=== PATIENT | female | born 2000 | race Caucasian/White ===

== ENCOUNTER 2020-01-22 06:55 | Emergency (ER) | payer OTHER, SELFPAY ==
[2020-01-22 07:13] VITALS: BP 126/65; PULSE 107; RESP 16; TEMP 36.8; O2SAT 99; BMI 22.4
--- NOTE | 2020-01-22 08:40 | XR_ITS ---
EXAMINATION: LEFT KNEE. AP PELVIS AND LEFT HIP. CLINICAL INFORMATION: Atraumatic left hip pain radiating to left knee x1 week COMPARISON: None TECHNIQUE: 2 views left knee. AP pelvis and left hip 3 views. FINDINGS: Left knee: There is no visible acute fracture, dislocation or subluxation seen. No bony erosive changes. No abnormal joint effusion. AP pelvis and left hip: There is normal symmetry of both hip joints and SI joints without bony erosive changes. No visible lytic or sclerotic process involving the pelvis or the SI joints. The soft tissues are normal. AP and frog-leg views left hip reveal no visible acute fracture, dislocation or bony erosive changes. There are small bone islands along the left superior pubic rami. XR/XR knee LT 2V IMPRESSION: Unremarkable left knee exam. Unremarkable AP pelvis and left hip exam.
--- NOTE | 2020-01-22 08:40 | XR_ITS ---
EXAMINATION: LEFT KNEE. AP PELVIS AND LEFT HIP. CLINICAL INFORMATION: Atraumatic left hip pain radiating to left knee x1 week COMPARISON: None TECHNIQUE: 2 views left knee. AP pelvis and left hip 3 views. FINDINGS: Left knee: There is no visible acute fracture, dislocation or subluxation seen. No bony erosive changes. No abnormal joint effusion. AP pelvis and left hip: There is normal symmetry of both hip joints and SI joints without bony erosive changes. No visible lytic or sclerotic process involving the pelvis or the SI joints. The soft tissues are normal. AP and frog-leg views left hip reveal no visible acute fracture, dislocation or bony erosive changes. There are small bone islands along the left superior pubic rami. XR/XR hip LT w PEL1V IMPRESSION: Unremarkable left knee exam. Unremarkable AP pelvis and left hip exam.
--- NOTE | 2020-01-22 08:40 | US_ITS ---
EXAMINATION: US VENOUS ULTRASOUND WITH DOPPLER LOWER EXTREMITY, LEFT CLINICAL INFORMATION: Pain. COMPARISON: None TECHNIQUE: Ultrasound of the deep veins is performed from the hip to the calf with compression sonography and color and pulse Doppler assessment. Spectral analysis with color-flow imaging is performed. FINDINGS: There is normal venous compression and respiratory variation and augmented flow. The visualized common femoral vein, superficial femoral vein, profunda femoral vein, popliteal vein, and the trifurcation region shows no evidence of deep venous thrombosis. There is no significant popliteal fossa cyst. If the patient's symptoms persist, followup ultrasound in 5 days 7 days might be of value to exclude proximal propagation from a non-visualized calf vein. US/US venous duplex LE IMPRESSION: No evidence of DVT left lower leg.
[2020-01-22] MEDS: NaPROXEN 500 MG TABLET PO (08:48)
[2020-01-22 09:10] VITALS: BP 112/65; PULSE 80; RESP 16; TEMP 37.2; O2SAT 100
--- NOTE | 2020-01-22 09:24 | PC.NURSE ---
pt ambulating to and from xray w steady gait
--- NOTE | 2020-01-22 10:31 | ED.LOWEXIN ---
HPI - Extremity Injury (Lower) General Chief Complaint: Extremity Injury, Lower Stated Complaint: LEFT LEG PAIN Time Seen by Provider: 01/22/20 08:36 Source: patient Mode of arrival: ambulatory Limitations: no limitations History of Present Illness HPI Narrative: 19-year-old female presenting to the ED with complaints of left inner thigh pain radiating to her left knee for the past week worse today. Reports she has a history of surgical repair to left ankle 3 years ago. Reports she is status post 10 months . Denies any injuries. Denies any additional complaints or concerns at this time. Related Data Previous Rx's Medication Instructions Recorded cyclobenzaprine 10 mg PO TID PRN #10 tab 01/22/20 naproxen 500 mg PO BID PRN #10 tab 01/22/20 Allergies Allergy/AdvReac Type Severity Reaction Status Date / Time No Known Allergies Allergy Unverified 11/14/19 17:34 [No Known Allergies*] Review of Systems Review of Systems: Constitutional :No Fever, No Chills Cardiovascular : No Chest Pain, No SOB, No Dyspnea on Exertion, No Edema Respiratory : No Cough, No Sputum, No Wheezing, No Smoke Exposure, No Dyspnea Musculoskeletal : + joint pain, No Myalgias, No Joint Swelling Skin : No Skin Lesions, No rash Neuro : No Weakness, No Numbness, No Paresthesias, No Loss of Consciousness, No Dizziness, No Headache Psych : No Anxiety/Panic, No Depression, No SI/HI/AH/VH, No Social Issues, Heme/Lymph: No Bruising, No Bleeding,No Lymphadenopathy Endocrine : No Polyuria, No Polydipsia, No Temperature Intolerance Yes all other systems are reviewed and are negative [facility] Past Medical History Attestation statement: The following information was validated with the patient. Medical History No known health problems Social History Social History Alcohol intake: never Smoking Status: Former smoker Smoked in Last 30 Days: No Use of substances other than those prescribed or required for medical reasons: Yes Substance Use Type: Marijuana Substance Use Frequency: Occasionally Advance Directives: No Advance Directives Information Provided: Yes Physical Exam Vital Signs: Vital Signs: Last Vital Signs Temp 99.0 F 01/22/20 09:10 Pulse 80 01/22/20 09:10 Resp 16 01/22/20 09:10 BP 112/65 01/22/20 09:10 Pulse Ox 100 01/22/20 09:10 Body Mass Index 22.4 vital signs have been reviewed as normal and appeared to be correct. Blood pressure normal. Heart rate normal. Respiration rate normal. Temperature normal. Oxygen saturation normal. Appearance: Alert. Oriented X3. No acute distress. Head: Normal external exam. Normocephalic. Eyes: PERRLA. EOMI. Conjunctiva and sclera normal. Eyelids normal. ENT: Pharynx normal. Uvula midline. Moist mucous membranes. Neck: Normal inspection. Neck supple. FROM. No adenopathy. Thyroid Normal. No meningeal signs. No neck mass noted. CVS: Normal heart rate and rhythm. Heart sound normal. No murmurs noted. Pulses normal throughout. Respiratory: No respiratory distress. Painless inspiration. Breath sounds normal. No wheezes/rales/rhonchi noted. Chest nontender. No accessory muscle usage noted or decreased air movement noted. Back: Full range of motion noted. Skin: Skin warm and dry. Normal skin color. Normal skin turgor. No rashes/lesions/lacerations noted. Extremities: TTP of left inner thight and left knee. No obvious deformities noted. No lower extremity edema. all other Extremities exhibit normal range of motion and nontender. Neuro: Oriented X 3. No motor deficit. No sensory deficit. Reflexes normal. Course Course Course Narrative: - 19-year-old female presenting to the ED with complaints of left inner thigh pain radiating to her left knee for the past week worse today. Reports surgical history of left ankle. Ten months status post . Denies history of DVT/PE. - On exam patient does not have any pitting edema or edema noted to left lower extremity. - X-rays obtained and negative for any acute processes of the left hip /left knee. Ultrasound of left leg obtained and negative for any DVT or any other acute processes. Patient most likely muscular strain. Patient being discharged with naproxen and muscle relaxers instructions return if any new or worsening symptoms to follow-up with primary care provider. Patient understood and agreed with this plan. MDM - Extremity Injury (Lower) Medical Records Attestation: I reviewed the patient's medical records. Imaging Data left hip/knee: Attestation: I personally reviewed and interpreted this imaging study as follows: Radiologist's impression: IMPRESSION: Unremarkable left knee exam. Unremarkable AP pelvis and left hip exam. left leg ultrasiund : Attestation: I personally reviewed and interpreted this imaging study as follows: Radiologist's impression: IMPRESSION: No evidence of DVT left lower leg. Discharge Plan Discharge Clinical Impression: Muscle strain of left lower extremity Patient Disposition: Home, Self-Care Instructions: Muscle Strain (ED) Prescriptions: New cyclobenzaprine 10 mg tablet 10 mg PO TID PRN (Reason: muscle spasm) Qty: 10 RF: 0 naproxen 500 mg tablet 500 mg PO BID PRN (Reason: pain) Qty: 10 RF: 0 Referrals: Physician,None [Primary Care Provider] - 2 days (your pcp) Stand Alone Forms: Work/School Release Discharge Date/Time: 01/22/20 10:36 Print Language: Serbian
== END 2020-01-22 10:36 | disposition home or self-care (01) ==
PROVIDERS: Emergency Provider Internal Medicine
DX: M79.605 Pain in left leg (principal); M25.562 Pain in left knee; M25.552 Pain in left hip; F12.90 Cannabis use, unspecified, uncomplicated; Z87.891 Personal history of nicotine dependence; Z79.899 Other long term (current) drug therapy
CPT/HCPCS: 73502; 73560; 93971; 99284

== ENCOUNTER 2020-06-09 09:23 | Emergency (ER) | payer OTHER, SELFPAY ==
--- NOTE | ~2020-06-09 | US_ITS ---
EXAMINATION: US OBSTETRICAL ULTRASOUND CLINICAL INFORMATION: Positive test. Pain. Rule out ectopic . COMPARISON: None. LMP: Not known. TECHNIQUE: Transabdominal first trimester OB ultrasound FINDINGS: There is a single intrauterine gestational sac with visible yolk sac, embryo/fetus, and cardiac activity. There is a small hypoechoic collection adjacent to the gestational sac questionable for subchorionic hemorrhage. This measures 2.8 x 0.9 x 0.8 cm in dimension. HR: 117 beats per minute. CRL (crown rump length): 0.6 cm (6 weeks 4 days +/- 4 days). LANDRY (estimated date of delivery): 01/29/2021 +/- 4 days. MATERNAL ADNEXA: The right maternal ovary measures 3.1 x 2.1 x 1.5 cm. The left maternal ovary measures 4.6 x 2.7 x 2.3 cm. There is no significant maternal adnexal mass. No maternal pelvic ascites. US/US OB <= 14 weeks fetus IMPRESSION: 1. Single intrauterine gestation with ultrasound gestational age of 6 weeks 4 days +/- 4 days. 2. Estimated date of delivery is 01/29/2021 +/- 4 days. 3. No maternal adnexal mass or pelvic ascites.
[2020-06-09 09:43] VITALS: BP 121/72; PULSE 77; RESP 18; TEMP 36.6; O2SAT 100; BMI 22.4
[2020-06-09 10:04] LABS: Glucose Urine UA NEG (NEG); Leukocyte Esterase Urine TRACE (NEG); Nitrite Urine NEG (NEG); PH 5.5 (5.0-8.0); Specific Gravity - Urine >= 1.030 (1.005-1.025); UACC Culture Trigger YES; Urine Blood 1+ (NEG); Urine Ketones 15 MG/DL (NEG); Urine Protein TRACE MG/DL (NEG-TRACE)
[2020-06-09 10:05] LABS: Appearance Urine HAZY; Color Urine YELLOW; UPreg QC Valid YES; Urine Pregnancy POSITIVE (NEGATIVE)
[2020-06-09 10:12] LABS: Bacteria Urine 3+ /LPF; Mucus Urine 2+ /LPF; Squamous Epithelial Cell Urine 4+ /LPF
--- NOTE | 2020-06-09 10:25 | ED.GENADULT ---
HPI - General Adult General Chief complaint: General Medical <ИРИНА Ley Last Filed: 06/13/20 09:23> Stated complaint: vomiting <ИРИНА Ley Last Filed: 06/13/20 09:23> Time Seen by Provider: 06/09/20 09:42 <ИРИНА Ley - Last Filed: 06/13/20 09:23> History of Present Illness HPI narrative: Patient has felt nauseous the past several days similar to prior pregnancies, her last menstrual was 6 or 7 weeks ago, she took a home test and it was positive but she wants the confirming test. She also was concerned as she has had intermittent low pelvic crampy pains coming and going, she has no pain now, no bleeding no dysuria <ИРИНА Ley Last Filed: 06/13/20 09:23> Related Data Home medications: Previous Rx's Medication Instructions Recorded cyclobenzaprine 10 mg PO TID PRN #10 tab 01/22/20 naproxen 500 mg PO BID PRN #10 tab 01/22/20 ondansetron HCl [Zofran] 4 mg PO Q6H PRN #10 tab 06/09/20 <ИРИНА Ley Last Filed: 06/13/20 09:23> Allergies/adverse reactions: Allergies Allergy/AdvReac Type Severity Reaction Status Date / Time No Known Allergies Allergy Verified 06/10/20 08:41 [No Known Allergies*] <ИРИНА Ley Last Filed: 06/13/20 09:23> Review of Systems Review of Systems: Positive for nausea vomiting and crampy low abdominal pain Negatives are no fever no chills no dizziness no weakness no fainting no feeling faint no confusion no headache no neck pain no chest pain or shortness of breath no dysuria no frequency of urination no burning with urination no diarrhea no rash no numbness or weakness <ИРИНА Ley Last Filed: 06/13/20 09:23> [facility] Past Medical History Medical History: Medical History No known health problems <ИРИНА Ley Last Filed: 06/13/20 09:23> Surgical History: Surgical History History of ankle surgery <ИРИНА Ley - Last Filed: 06/13/20 09:23> Social History Social History: Social History (Updated 06/10/20 @ 08:43 by Herminia Ralph [facility]) Alcohol intake: never Smoking Status: Former smoker Substance Use Type: Marijuana Sexually active: Yes Gender identity: female <ИРИНА Ley - Last Filed: 06/13/20 09:23> Physical Exam Vital Signs: Vital Signs: Last Vital Signs Temp 97.8 F 06/09/20 09:43 Pulse 77 06/09/20 09:43 Resp 18 06/09/20 09:43 BP 121/72 06/09/20 09:43 Pulse Ox 100 06/09/20 09:43 Body Mass Index 22.4 <ИРИНА Ley - Last Filed: 06/13/20 09:23> Vital Signs: Last Vital Signs Temp 97.8 F 06/09/20 09:43 Pulse 77 06/09/20 09:43 Resp 18 06/09/20 09:43 BP 121/72 06/09/20 09:43 Pulse Ox 100 06/09/20 09:43 Body Mass Index 22.4 <Leopoldo Villagomez MD - Last Filed: 06/23/20 15:35> General appearance is no acute distress, comfortable and cooperative The eyes are anicteric no pallor The pharynx is clear with moist mucous membranes The neck is supple The chest is clear The abdomen is soft and nontender The extremities no edema no rash full range of motion x4 Neuro no focal deficits <ИРИНА Ley - Last Filed: 06/13/20 09:23> Course Course Course Narrative: Patient was given antiemetic and tolerates p.o. and is able to drink and tolerate fluids was confirmed with testing Ultrasound confirmed IUP with gestational age of 6 weeks, no ectopic no other mass [place] was [address]174, no other significant lab abnormality, no evidence UTI Well-appearing patient now tolerating p.o. easily is discharged and she already has care scheduled and will follow with OBGYN this week <ИРИНА Ley - Last Filed: 06/13/20 09:23> I have reviewed the chart <Leopoldo Villagomez MD - Last Filed: 06/23/20 15:35> Medical Decision Making Lab Data Result diagrams: : 06/09/20 11:21 06/09/20 11:21 <ИРИНА Ley - Last Filed: 06/13/20 09:23> Labs: Lab Results 06/09/20 06/09/20 06/09/20 Range/Units 09:55 09:55 11:20 WBC (4.8-10.8) X10*3/uL RBC (4.20-5.50) X10*6/uL Hgb (12.0-16.0) g/dl Hct (37-47) % MCV (80-98) fL MCH (27.0-33.0) pg MCHC (31.0-35.0) g/dl RDW (11.0-16.0) % Plt Count (160-400) X10*3/uL MPV (9.4-12.3) fL Immature Gran % (Auto) (0.0-0.4) % Neut % (Auto) (45-73) % Lymph % (Auto) (20-40) % Sumner % (Auto) (2-11) % Eos % (Auto) (0-4) % Baso % (Auto) (0-2) % Lymph # (Auto) (1.2-4.9) X10*3/uL Sumner # (Auto) (0.1-1.2) X10*3/uL Eos # (Auto) (0.0-0.4) X10*3/uL Baso # (Auto) (0.0-0.2) X10*3/uL Abs Immat Gran (auto) (0.00-0.03) X10*3/uL Absolute Neuts (auto) (2.0-8.3) X10*3/uL Absolute Nucleated RBC (0.0-0.012) X10*3/uL Nucleated RBC % (auto) (0.0-0.2) /100WBC Sodium (135-145) mmol/L Potassium (3.3-5.1) mmol/L Chloride (96-108) mmol/L Carbon Dioxide (22-29) mmol/L Anion Gap (12-20) BUN (9-16) mg/dL Creatinine (0.5-1.4) mg/dL Estim Creat Clear Calc Estimated GFR Random Glucose (60-115) mg/dL Calcium (8.4-10.2) mg/dL Beta HCG, Quant mIU/mL Urine Color YELLOW YELLOW Urine Appearance HAZY HAZY Urine pH 5.5 6.0 (5.0-8.0) Ur Specific Bellona >= 1.030 H >= 1.030 H (1.005-1.025) Urine Protein TRACE TRACE (NEG-TRACE) MG/DL Urine Glucose (UA) NEG NEG (NEG) MG/DL Urine Ketones 15 40 (NEG) MG/DL Urine Blood 1+ H TRACE (NEG) Urine Nitrite NEG NEG (NEG) Ur Leukocyte Esterase TRACE H NEG (NEG) Urine RBC 1-4 1-4 (0) /HPF Urine WBC 5-9 H 0-2 (0-4) /HPF Ur Squamous Epith Cells 4+ 2+ /LPF Urine Bacteria 3+ TRACE /LPF Urine Mucus 2+ 4+ /LPF Urine Test POSITIVE H (NEGATIVE) 06/09/20 06/09/20 06/09/20 Range/Units 11:21 11:21 11:21 WBC 8.3 (4.8-10.8) X10*3/uL RBC 3.97 L (4.20-5.50) X10*6/uL Hgb 11.9 L (12.0-16.0) g/dl Hct 35.5 L (37-47) % MCV 89.4 (80-98) fL MCH 30.0 (27.0-33.0) pg MCHC 33.5 (31.0-35.0) g/dl RDW 12.4 (11.0-16.0) % Plt Count 212 (160-400) X10*3/uL MPV 10.7 (9.4-12.3) fL Immature Gran % (Auto) 0.2 (0.0-0.4) % Neut % (Auto) 70.1 (45-73) % Lymph % (Auto) 23.4 (20-40) % Sumner % (Auto) 5.9 (2-11) % Eos % (Auto) 0.2 (0-4) % Baso % (Auto) 0.2 (0-2) % Lymph # (Auto) 2.0 (1.2-4.9) X10*3/uL Sumner # (Auto) 0.5 (0.1-1.2) X10*3/uL Eos # (Auto) 0.0 (0.0-0.4) X10*3/uL Baso # (Auto) 0.0 (0.0-0.2) X10*3/uL Abs Immat Gran (auto) 0.02 (0.00-0.03) X10*3/uL Absolute Neuts (auto) 5.8 (2.0-8.3) X10*3/uL Absolute Nucleated RBC 0.000 (0.0-0.012) X10*3/uL Nucleated RBC % (auto) 0.0 (0.0-0.2) /100WBC Sodium 138 (135-145) mmol/L Potassium 3.8 (3.3-5.1) mmol/L Chloride 108 (96-108) mmol/L Carbon Dioxide 19 L (22-29) mmol/L Anion Gap 15 (12-20) BUN 9 (9-16) mg/dL Creatinine 0.64 (0.5-1.4) mg/dL Estim Creat Clear Calc 124.0 Estimated GFR > 60 Random Glucose 94 (60-115) mg/dL Calcium 9.7 (8.4-10.2) mg/dL Beta HCG, Quant 45641 mIU/mL Urine Color Urine Appearance Urine pH (5.0-8.0) Ur Specific Bellona (1.005-1.025) Urine Protein (NEG-TRACE) MG/DL Urine Glucose (UA) (NEG) MG/DL Urine Ketones (NEG) MG/DL Urine Blood (NEG) Urine Nitrite (NEG) Ur Leukocyte Esterase (NEG) Urine RBC (0) /HPF Urine WBC (0-4) /HPF Ur Squamous Epith Cells /LPF Urine Bacteria /LPF Urine Mucus /LPF Urine Test (NEGATIVE) <ИРИНА Ley - Last Filed: 06/13/20 09:23> Lab Results 06/09/20 06/09/20 06/09/20 Range/Units 09:55 09:55 11:20 WBC (4.8-10.8) X10*3/uL RBC (4.20-5.50) X10*6/uL Hgb (12.0-16.0) g/dl Hct (37-47) % MCV (80-98) fL MCH (27.0-33.0) pg MCHC (31.0-35.0) g/dl RDW (11.0-16.0) % Plt Count (160-400) X10*3/uL MPV (9.4-12.3) fL Immature Gran % (Auto) (0.0-0.4) % Neut % (Auto) (45-73) % Lymph % (Auto) (20-40) % Sumner % (Auto) (2-11) % Eos % (Auto) (0-4) % Baso % (Auto) (0-2) % Lymph # (Auto) (1.2-4.9) X10*3/uL Sumner # (Auto) (0.1-1.2) X10*3/uL Eos # (Auto) (0.0-0.4) X10*3/uL Baso # (Auto) (0.0-0.2) X10*3/uL Abs Immat Gran (auto) (0.00-0.03) X10*3/uL Absolute Neuts (auto) (2.0-8.3) X10*3/uL Absolute Nucleated RBC (0.0-0.012) X10*3/uL Nucleated RBC % (auto) (0.0-0.2) /100WBC Sodium (135-145) mmol/L Potassium (3.3-5.1) mmol/L Chloride (96-108) mmol/L Carbon Dioxide (22-29) mmol/L Anion Gap (12-20) BUN (9-16) mg/dL Creatinine (0.5-1.4) mg/dL Estim Creat Clear Calc Estimated GFR Random Glucose (60-115) mg/dL Calcium (8.4-10.2) mg/dL Beta HCG, Quant mIU/mL Urine Color YELLOW YELLOW Urine Appearance HAZY HAZY Urine pH 5.5 6.0 (5.0-8.0) Ur Specific Bellona >= 1.030 H >= 1.030 H (1.005-1.025) Urine Protein TRACE TRACE (NEG-TRACE) MG/DL Urine Glucose (UA) NEG NEG (NEG) MG/DL Urine Ketones 15 40 (NEG) MG/DL Urine Blood 1+ H TRACE (NEG) Urine Nitrite NEG NEG (NEG) Ur Leukocyte Esterase TRACE H NEG (NEG) Urine RBC 1-4 1-4 (0) /HPF Urine WBC 5-9 H 0-2 (0-4) /HPF Ur Squamous Epith Cells 4+ 2+ /LPF Urine Bacteria 3+ TRACE /LPF Urine Mucus 2+ 4+ /LPF Urine Test POSITIVE H (NEGATIVE) 06/09/20 06/09/20 06/09/20 Range/Units 11:21 11:21 11:21 WBC 8.3 (4.8-10.8) X10*3/uL RBC 3.97 L (4.20-5.50) X10*6/uL Hgb 11.9 L (12.0-16.0) g/dl Hct 35.5 L (37-47) % MCV 89.4 (80-98) fL MCH 30.0 (27.0-33.0) pg MCHC 33.5 (31.0-35.0) g/dl RDW 12.4 (11.0-16.0) % Plt Count 212 (160-400) X10*3/uL MPV 10.7 (9.4-12.3) fL Immature Gran % (Auto) 0.2 (0.0-0.4) % Neut % (Auto) 70.1 (45-73) % Lymph % (Auto) 23.4 (20-40) % Sumner % (Auto) 5.9 (2-11) % Eos % (Auto) 0.2 (0-4) % Baso % (Auto) 0.2 (0-2) % Lymph # (Auto) 2.0 (1.2-4.9) X10*3/uL Sumner # (Auto) 0.5 (0.1-1.2) X10*3/uL Eos # (Auto) 0.0 (0.0-0.4) X10*3/uL Baso # (Auto) 0.0 (0.0-0.2) X10*3/uL Abs Immat Gran (auto) 0.02 (0.00-0.03) X10*3/uL Absolute Neuts (auto) 5.8 (2.0-8.3) X10*3/uL Absolute Nucleated RBC 0.000 (0.0-0.012) X10*3/uL Nucleated RBC % (auto) 0.0 (0.0-0.2) /100WBC Sodium 138 (135-145) mmol/L Potassium 3.8 (3.3-5.1) mmol/L Chloride 108 (96-108) mmol/L Carbon Dioxide 19 L (22-29) mmol/L Anion Gap 15 (12-20) BUN 9 (9-16) mg/dL Creatinine 0.64 (0.5-1.4) mg/dL Estim Creat Clear Calc 124.0 Estimated GFR > 60 Random Glucose 94 (60-115) mg/dL Calcium 9.7 (8.4-10.2) mg/dL Beta HCG, Quant 96485 mIU/mL Urine Color Urine Appearance Urine pH (5.0-8.0) Ur Specific Bellona (1.005-1.025) Urine Protein (NEG-TRACE) MG/DL Urine Glucose (UA) (NEG) MG/DL Urine Ketones (NEG) MG/DL Urine Blood (NEG) Urine Nitrite (NEG) Ur Leukocyte Esterase (NEG) Urine RBC (0) /HPF Urine WBC (0-4) /HPF Ur Squamous Epith Cells /LPF Urine Bacteria /LPF Urine Mucus /LPF Urine Test (NEGATIVE) <Leopoldo Villagomez MD - Last Filed: 06/23/20 15:35> Discharge Plan Discharge Clinical Impression: , Nausea and vomiting during <ИРИНА Ley - Last Filed: 06/13/20 09:23> Patient Disposition: Home, Self-Care <ИРИНА Ley - Last Filed: 06/13/20 09:23> Additional Instructions: Use Zofran if needed for nausea Follow with your OBGYN tomorrow Return to the ER any time for worsening abdominal pain or bleeding or any worse condition or any concerns, or dehydration or vomiting that cannot be controlled <ИРИНА Ley - Last Filed: 06/13/20 09:23> Prescriptions: New ondansetron HCl [Zofran] 4 mg tablet 4 mg PO Q6H PRN (Reason: nausea and vomiting) Qty: 10 RF: 0 No Action cyclobenzaprine 10 mg tablet 10 mg PO TID PRN (Reason: muscle spasm) Qty: 10 RF: 0 naproxen 500 mg tablet 500 mg PO BID PRN (Reason: pain) Qty: 10 RF: 0 <ИРИНА Ley - Last Filed: 06/13/20 09:23> Interventions: ED Discharge Assessment Last Done: 06/09/20 14:13 <ИРИНА Ley - Last Filed: 06/13/20 09:23> Discharge Date/Time: 06/09/20 14:13 <ИРИНА Ley - Last Filed: 06/13/20 09:23>
[2020-06-09 11:35] LABS: MANUAL DIFF FLAG NO
[2020-06-09 11:39] LABS: Glucose Urine UA NEG (NEG); Leukocyte Esterase Urine NEG (NEG); Nitrite Urine NEG (NEG); Specific Gravity - Urine >= 1.030 (1.005-1.025); Urine Blood TRACE (NEG); Urine Ketones 40 MG/DL (NEG); Urine Protein TRACE MG/DL (NEG-TRACE)
[2020-06-09 11:41] LABS: Basophils Percent Auto 0.2 % (0-2); Eosinophils Percent Auto 0.2 % (0-4); Hematocrit 35.5 % (37-47); Hemoglobin 11.9 g/dl (12.0-16.0); Imm Gran Abs Auto 0.02 X10*3/uL (0.00-0.03); Imm Gran Pct Auto 0.2 % (0.0-0.4); Lymphocytes Percent Auto 23.4 % (20-40); Mean Corpuscular HGB Conc 33.5 g/dl (31.0-35.0); Mean Corpuscular Volume 89.4 fL (80-98); Mean Platelet Volume 10.7 fL (9.4-12.3); Monocytes Absolute Auto 0.5 X10*3/uL (0.1-1.2); Monocytes Percent Auto 5.9 % (2-11); Neutrophils Absolute Auto 5.8 X10*3/uL (2.0-8.3); Neutrophils Percent Auto 70.1 % (45-73); Platelet Count 212 X10*3/uL (160-400); Red Blood Count 3.97 X10*6/uL (4.20-5.50); Red Cell Distribution Width 12.4 % (11.0-16.0); White Blood Count 8.3 X10*3/uL (4.8-10.8)
[2020-06-09 11:42] LABS: Appearance Urine HAZY; Color Urine YELLOW
[2020-06-09 11:51] LABS: Bacteria Urine TRACE /LPF; Mucus Urine 4+ /LPF; Squamous Epithelial Cell Urine 2+ /LPF; WBC Urine 0-2 /HPF (0-4)
[2020-06-09 12:00] LABS: Anion Gap 15 (12-20); Blood Urea Nitrogen 9 mg/dL (9-16); Calcium 9.7 mg/dL (8.4-10.2); Carbon Dioxide 19 mmol/L (22-29); Chloride 108 mmol/L (96-108); Estimated Glomerular Filt Rate > 60; Glucose Random 94 mg/dL (60-115); Potassium 3.8 mmol/L (3.3-5.1); Sodium 138 mmol/L (135-145)
[2020-06-09 12:33] LABS: HCG Quantitative 92827 mIU/mL
== END 2020-06-09 14:13 | disposition home or self-care (01) ==
PROVIDERS: Physician Assistant Medical; Emergency Provider Emergency Medicine
DX: O21.9 Vomiting of pregnancy, unspecified (principal); Z3A.01 Less than 8 weeks gestation of pregnancy
CPT/HCPCS: 36415; 76801; 80048; 81001; 81003; 81025; 84702; 85025; 87086; 99283; 99284

== ENCOUNTER → 2020-06-10 08:30 | Outpatient (BNVA) | payer OTHER, SELFPAY | PROVIDERS: PCP Pediatrics; Visit Provider Advanced Practice Midwife | DX: Z32.01 Encounter for pregnancy test, result positive (principal) | CPT/HCPCS: 81025; 99212 ==

== ENCOUNTER 2021-09-15 11:11 | Emergency (ER) | payer OTHER, SELFPAY ==
[2021-09-15 11:16] VITALS: BP 118/68; PULSE 110; O2SAT 98
[2021-09-15 12:30] VITALS: BP 131/95; PULSE 92; RESP 18; TEMP 36.6; O2SAT 98; BMI 21.8
--- NOTE | 2021-09-15 19:52 | ED.ANXIETY ---
HPI - Anxiety General Chief Complaint: Anxiety Stated Complaint: ANXIETY ,FEELS HEART RACING PER EMS Time Seen by Provider: 09/15/21 19:41 Source: patient Mode of arrival: ambulatory Limitations: no limitations History of Present Illness HPI narrative: 21-year-old female waiting room for over 8 hours for anxiety. She states she was smoking marijuana when she was told that her daughter who lives with the loan services professional was sick daughter has since improved but she has remained very anxious she states she has a history of anxiety but does not have a primary care doctor she denies fevers chills cough or shortness of breath she does have episodes feel like s Related Data Previous Rx's Medication Instructions Recorded cyclobenzaprine 10 mg tablet 10 mg PO TID PRN muscle spasm #10 01/22/20 tabs naproxen 500 mg tablet 500 mg PO BID PRN pain #10 tabs 01/22/20 ondansetron HCl 4 mg tablet 4 mg PO Q6H PRN nausea and 06/09/20 (Zofran) vomiting #10 tabs hydroxyzine HCl 25 mg tablet 25 mg PO TID PRN anxiety #90 tabs 09/15/21 Allergies Allergy/AdvReac Type Severity Reaction Status Date / Time No Known Allergies Allergy Verified 06/10/20 08:41 [No Known Allergies*] Review of Systems Review of Systems: Review of systems: General: Patient denies any fever chills recent illness or falls Musculoskeletal: Denies back pain or body aches or other injuries HEENT: denies headache, runny nose, ear pain Respiratory: denies shortness of breath, cough Cardiovascular: no chest pain or palpitations : denies dysuria, frequency Abdomen: no nausea vomiting denies abdominal pain Extremities: no swelling, no pain Skin: no diaphoresis Yes all other systems are reviewed and are negative [facility] Past Medical History Attestation statement: The following information was validated with the patient. Medical History No known health problems Surgical History History of ankle surgery Social History Social History (Updated 06/10/20 @ 08:43 by Herminia Ralph CMA) Alcohol intake: never Substance Use Type: Marijuana Advance Directives: No Advance Directives Information Provided: No Gender identity: Female Physical Exam Vital Signs: Vital Signs: Last Vital Signs Temp 98 F 09/15/21 12:30 Pulse 92 09/15/21 12:30 Resp 18 09/15/21 12:30 BP 131/95 H 09/15/21 12:30 Pulse Ox 98 09/15/21 12:30 O2 Del Method 09/15/21 12:30 BMI result Body Mass Index 21.8 General: Well-appearing well-nourished in no signs of distress HEENT: Normocephalic atraumatic Neck: No signs of JVD, no masses no tenderness or lymphadenopathy Cardiovascular: Regular rate and rhythm Respiratory: Clear to auscultation bilaterally Abdomen: Soft nontender no masses Extremities: Normal pedal pulses no signs of edema Skin: Dry warm no rashes Back: No tenderness full ROM MDM - Anxiety MDM Narrative Medical decision making narrative: Patient looks well I will start on hydroxizine and send a script for hydroxyzine Discharge Plan Discharge Clinical Impression: Acute anxiety Patient Disposition: Home, Self-Care Instructions: Anxiety (ED) Additional Instructions: Please call to follow up. Prescriptions: New hydroxyzine HCl 25 mg tablet 25 mg PO TID PRN (Reason: anxiety) Qty: 90 0RF No Action ondansetron HCl [Zofran] 4 mg tablet 4 mg PO Q6H PRN (Reason: nausea and vomiting) Qty: 10 0RF cyclobenzaprine 10 mg tablet 10 mg PO TID PRN (Reason: muscle spasm) Qty: 10 0RF naproxen 500 mg tablet 500 mg PO BID PRN (Reason: pain) Qty: 10 0RF Referrals: Jesús Vanegas MD [Physician] - (Please call to establish)
[2021-09-15] MEDS: hydrOXYzine HCL 25 MG TABLET PO (20:01)
== END 2021-09-15 20:17 | disposition home or self-care (01) ==
PROVIDERS: Emergency Provider Student in an Organized Health Care Education/Training Program
DX: F41.1 Generalized anxiety disorder (principal); F43.0 Acute stress reaction; F12.90 Cannabis use, unspecified, uncomplicated; Z79.899 Other long term (current) drug therapy
CPT/HCPCS: 99282; 99283